=== PATIENT | male | born 1975 | race Caucasian/White ===

== ENCOUNTER 2017-03-29 11:29 | Emergency (ER) | payer BC, OTHER ==
[~2017-03-29] VITALS: Ht 177.8 cm; Wt 95.3 kg
[2017-03-29] MEDS ORDERED: HYDROmorphone HCL 2 MG/ML VL IM ONE (13:15)
[2017-03-29] MEDS ORDERED: PROMETHAZINE HCL 25 MG/ML 1ML IM ONE (13:15)
[2017-03-29 13:18] VITALS: BP 125/98
[2017-03-29] MEDS ORDERED: MEPERIDINE HCL (50 MG/ML) 1 ML VIAL IM ONE (13:30)
== END 2017-03-29 14:31 | disposition home or self-care (01) ==
LOC: ER 11:29
DX: G89.29 Other chronic pain (principal); M54.5 Low back pain
CPT/HCPCS: 96372; 99284; J2175; J2550